=== PATIENT | female | born 1995 ===

== ENCOUNTER 2023-03-27 17:40 | Observation (INO) | payer MEDICAID | END 2023-03-27 19:34 | disposition home or self-care (01) | LOC: MW.OB 17:40 | PROVIDERS: ADMIT Obstetrics & Gynecology; ATTEND Obstetrics & Gynecology | DX: O42.92 Full-term premature rupture of membranes, unspecified as to length of time between rupture and onset of labor (principal); O99.891 Other specified diseases and conditions complicating pregnancy; M54.50 Low back pain, unspecified; Z3A.37 37 weeks gestation of pregnancy | CPT/HCPCS: 84112 ==